=== PATIENT | male | born 1965 | race Caucasian/White ===

== ENCOUNTER 2020-02-28 13:40 | Emergency (ER) | payer OTHER, MEDICAID ==
[~2020-02-28] VITALS: Ht 177.8 cm; Wt 135.2 kg
[~2020-02-28 13:40] MED LIST: AMLO5TAB15 PO; CLON0.5T10; HYDR12.56; HYDROCODON-ACETAMINOPHN; OMEP20CA74 PO; TIZA4TAB3; [UNRECOGNIZED DRUG - CODE]
[2020-02-28 15:18] LABS: Basophils # (auto) 0.1 10 ^3/uL (0-0.2); Eosinophils # (auto) 0.2 10 ^3/uL (0-0.8); Eosinophils % (auto) 2.6 % (0.0-7.0); Hematocrit 39.2 % (41.0-53.0); Hemoglobin 12.9 g/dL (13.5-17.5); Lymphocytes # (auto) 2.7 10 ^3/uL (0.4-5.4); Lymphocytes % (auto) 29.3 % (10.0-50.0); Mean Corpuscular Hemoglobin 29.1 pg (28.0-32.0); Mean Corpuscular Hgb Conc. 33.1 g/dL (32.0-36.0); Mean Corpuscular Volume 87.9 fL (80.0-100.0); Monocytes # (auto) 0.8 10 ^3/uL (0-1.3); Monocytes % (auto) 9.1 % (0.0-12.0); Neutrophils # (auto) 5.3 10 ^3/uL (1.6-8.6); Nucleated Red Blood Cells % 0.1 %; Platelet Count (auto) 294 10^3/uL (140-450); Red Blood Cells 4.45 10^6/uL (4.5-5.90); Red Cell Distribution Width 13.3 % (11.8-14.3); White Blood Cell 9.2 10^3/uL (4.4-10.8)
[2020-02-28 15:33] LABS: Albumin 3.4 g/dL (3.4-5.0); BUN/Creatinine Ratio 14.2; Calcium 8.8 mg/dL (8.5-10.1); Potassium 3.8 mmol/L (3.5-5.1)
[2020-02-28 15:36] LABS: Bilirubin, Total 0.4 mg/dL (0.2-1.0); Total Protein 7.9 g/dL (6.4-8.2)
[2020-02-28 19:20] VITALS: BP 132/88
== END 2020-02-28 19:29 | disposition home or self-care (01) ==
LOC: ER 13:40
DX: M77.31 Calcaneal spur, right foot (principal); M20.41 Other hammer toe(s) (acquired), right foot; M13.871 Other specified arthritis, right ankle and foot; R60.0 Localized edema; M79.605 Pain in left leg; M79.604 Pain in right leg; M19.90 Unspecified osteoarthritis, unspecified site; K21.9 Gastro-esophageal reflux disease without esophagitis; I10 Essential (primary) hypertension; Z88.0 Allergy status to penicillin
CPT/HCPCS: 36415; 71045; 73620; 80053; 83880; 84484; 85025; 93005; 93970

== ENCOUNTER 2020-12-07 06:16 | Emergency (ER) | payer OTHER, MEDICAID ==
[~2020-12-07] VITALS: Ht 177.8 cm; Wt 136.1 kg
[~2020-12-07 06:16] MED LIST changes: +AMLO-489 PO; -AMLO5TAB15 PO
[2020-12-07 07:24] VITALS: BP 150/94
[2020-12-07] MEDS ORDERED: methylPREDNISolone SOD SUCC 125 MG/2 ML VL IM ONE (07:45)
[2020-12-07] MEDS ORDERED: KETOROLAC TROMETH 60MG/2ML VIAL IM ONE (07:45)
== END 2020-12-07 08:21 | disposition home or self-care (01) ==
LOC: ER 06:16
DX: M25.512 Pain in left shoulder (principal); I10 Essential (primary) hypertension; K21.9 Gastro-esophageal reflux disease without esophagitis; Z79.899 Other long term (current) drug therapy
CPT/HCPCS: 73030; 96372; 99284; J1885; J2930

== ENCOUNTER 2020-12-19 01:50 | Emergency (ER) | payer OTHER, MEDICAID ==
[~2020-12-19] VITALS: Ht 177.8 cm; Wt 136.1 kg
[2020-12-19 01:54] VITALS: BP 159/83
== END 2020-12-19 04:09 | disposition left against medical advice (07) ==
LOC: ER 01:50
DX: M25.552 Pain in left hip (principal); Z53.21 Procedure and treatment not carried out due to patient leaving prior to being seen by health care provider; W18.39XA Other fall on same level, initial encounter; Y93.89 Activity, other specified; Y92.89 Other specified places as the place of occurrence of the external cause; Y99.8 Other external cause status
CPT/HCPCS: 73502

== ENCOUNTER → 2021-01-17 02:54 | Emergency (ER) | payer OTHER, MEDICAID ==
[~2021-01-17 02:54] MED LIST changes: -TIZA4TAB3; +TIZA4TAB7
== END | disposition left against medical advice (07) ==
LOC: ER 02:54
DX: M25.512 Pain in left shoulder (principal); Z53.21 Procedure and treatment not carried out due to patient leaving prior to being seen by health care provider

== ENCOUNTER 2021-01-17 12:31 | Emergency (ER) | payer OTHER, MEDICAID ==
[~2021-01-17] VITALS: Ht 177.8 cm; Wt 136.1 kg
[~2021-01-17 12:31] MED LIST changes: +TIZA4TAB3; -TIZA4TAB7
[2021-01-17 12:55] VITALS: BP 118/85
[2021-01-17] MEDS ORDERED: KETOROLAC TROMETH 60MG/2ML VIAL IM ONE (14:00)
[2021-01-17] MEDS ORDERED: methylPREDNISolone SOD SUCC 125 MG/2 ML VL IM ONE (14:00)
== END 2021-01-17 15:22 | disposition home or self-care (01) ==
LOC: ER 12:31
DX: M25.512 Pain in left shoulder (principal); K21.9 Gastro-esophageal reflux disease without esophagitis; I10 Essential (primary) hypertension; Z79.899 Other long term (current) drug therapy; W19.XXXA Unspecified fall, initial encounter; Y93.89 Activity, other specified; Y92.89 Other specified places as the place of occurrence of the external cause; Y99.8 Other external cause status
CPT/HCPCS: 73030; 96372; 99284; J1885; J2930

== ENCOUNTER 2021-04-19 08:46 | Emergency (ER) | payer OTHER, MEDICAID ==
[~2021-04-19] VITALS: Ht 177.8 cm; Wt 126.1 kg
[~2021-04-19 08:46] MED LIST changes: -TIZA4TAB3; +TIZA4TAB7
[2021-04-19 09:13] VITALS: BP 143/86
== END 2021-04-19 10:30 | disposition home or self-care (01) ==
LOC: ER 08:46
DX: S46.812A Strain of other muscles, fascia and tendons at shoulder and upper arm level, left arm, initial encounter (principal); M13.812 Other specified arthritis, left shoulder; I10 Essential (primary) hypertension; K21.9 Gastro-esophageal reflux disease without esophagitis; Z96.642 Presence of left artificial hip joint; Z79.899 Other long term (current) drug therapy; X58.XXXA Exposure to other specified factors, initial encounter; Y93.89 Activity, other specified; Y92.89 Other specified places as the place of occurrence of the external cause; Y99.8 Other external cause status
CPT/HCPCS: 73030

== ENCOUNTER 2021-05-16 05:53 | Emergency (ER) | payer OTHER, MEDICAID ==
[~2021-05-16] VITALS: Ht 177.8 cm; Wt 113.4 kg
[2021-05-16 05:53] VITALS: BP 144/88
== END 2021-05-16 09:35 | disposition left against medical advice (07) ==
LOC: ER 05:53
DX: M25.512 Pain in left shoulder (principal); Z53.21 Procedure and treatment not carried out due to patient leaving prior to being seen by health care provider; W19.XXXA Unspecified fall, initial encounter; Y93.89 Activity, other specified; Y92.89 Other specified places as the place of occurrence of the external cause; Y99.8 Other external cause status
CPT/HCPCS: 73000

== ENCOUNTER 2021-06-15 09:09 | Emergency (ER) | payer OTHER, MEDICAID ==
[~2021-06-15] VITALS: Ht 177.8 cm; Wt 131.5 kg
[2021-06-15 09:13] VITALS: BP 135/92
[2021-06-15 09:59] LABS: Urine Bacteria NONE SEEN /hpf (None Seen); Urine Blood Negative /uL (Negative); Urine Hyaline Cast FEW /lpf (0 - 2); Urine Mucus FEW (None Seen); Urine WBC 6 /hpf (0 - 3)
[2021-06-15 10:18] LABS: Albumin 3.5 g/dL (3.4-5.0); Calcium 8.8 mg/dL (8.5-10.1); Potassium 3.5 mmol/L (3.5-5.1)
[2021-06-15 10:21] LABS: BUN/Creatinine Ratio 12.2; Basophils # (auto) 0 10 ^3/uL (0-0.2); Basophils % (auto) 0.6 % (0.0-2.0); Bilirubin, Total 0.9 mg/dL (0.2-1.0); Eosinophils # (auto) 0.1 10 ^3/uL (0-0.8); Eosinophils % (auto) 1.3 % (0.0-7.0); Hematocrit 39.7 % (41.0-53.0); Hemoglobin 13.5 g/dL (13.5-17.5); Lymphocytes # (auto) 2.7 10 ^3/uL (0.4-5.4); Lymphocytes % (auto) 33.9 % (10.0-50.0); Mean Corpuscular Hemoglobin 29.5 pg (28.0-32.0); Mean Corpuscular Volume 86.7 fL (80.0-100.0); Monocytes # (auto) 0.7 10 ^3/uL (0-1.3); Monocytes % (auto) 8.8 % (0.0-12.0); Neutrophils # (auto) 4.5 10 ^3/uL (1.6-8.6); Neutrophils % (auto) 55.4 % (37.0-80.0); Nucleated Red Blood Cells % 0.2 %; Red Blood Cells 4.58 10^6/uL (4.5-5.90); Red Cell Distribution Width 13.7 % (11.8-14.3); Total Protein 7.7 g/dL (6.4-8.2); White Blood Cell 8.1 10^3/uL (4.4-10.8)
== END 2021-06-15 11:51 | disposition left against medical advice (07) ==
LOC: ER 09:09
DX: R11.2 Nausea with vomiting, unspecified (principal); R19.7 Diarrhea, unspecified; G89.29 Other chronic pain; M54.9 Dorsalgia, unspecified; M25.519 Pain in unspecified shoulder
CPT/HCPCS: 36415; 80053; 81001; 85025

== ENCOUNTER 2024-10-17 11:12 | Emergency (ER) | payer OTHER, MEDICAID ==
[~2024-10-17] VITALS: Ht 177.8 cm; Wt 158.9 kg
[~2024-10-17 11:12] MED LIST changes: -AMLO-489 PO; +AMLO1TAB22 PO; -CLON0.5T10; +CLON0.5T4; -HYDR12.56; +HYDR12.59; +TIZA-142; -TIZA4TAB7
--- NOTE | 2024-10-17 12:01 | DVH ---
CHEST RADIOGRAPH Indication: COUGH Technique: Single frontal view of the chest was obtained COMPARISON: None FINDINGS: Lines and Tubes: None Lungs: Clear Pleura: No effusion. No pneumothorax. Cardiomediastinal contours: Unremarkable Bones: Unremarkable IMPRESSION: No acute disease.
[2024-10-17 12:45] VITALS: BP 124/92; PULSE 109; RESP 18; TEMP 98.1; O2SAT 96
[2024-10-17] MEDS ORDERED: CEPH500C PO (12:58)
[2024-10-17] MEDS ORDERED: PRED20TA2 PO (12:58)
[2024-10-17] MEDS ORDERED: BENZ200C64 PO (12:58)
--- NOTE | 2024-10-17 13:04 | ED.PDOC ---
SOB-HPI HPI Comments A 59 YEAR OLD MALE PRESENTS TO THE ED WITH CHIEF COMPLAINT OF COUGH. PATIENT REPORTS THAT HE HAS BEEN EXPERIENCING A PERSISTENT COUGH FOR THE PAST 2 WEEKS WITH NO OTHER SYMPTOMS. PATIENT DENIES ANY SOB, CHEST PAIN, SORE THROAT, FEVER, EAR PAIN, WHEEZING, OR HEADACHE.NO OTHER SYMPTOMS REPORTED AT THIS TIME OF CARE. Chief Complaint: Cough Time Seen by MD: 13:01 Primary Care Provider: NEELAM Guajardo notes: Nurses Notes, Medications, Allergies Information Source: Patient Mode of Arrival: Ambulatory Severity: Moderate Timing: Weeks Duration: Since onset Context: At Rest PE Risk Factors: None History of: None Prehospital treatment: None Modifying Factors: Nothing Associated Signs and Symptoms: Cough If cough with SOB: Productive Past Medical History PAST MEDICAL HISTORY: Arthritis, GERD, HTN Surgical History: Denies all surgeries Family History Family History: Reviewed,noncontributory to illness, Unknown Social History Smoker: Non-Smoker Alcohol: Occasionally Drugs: Denies Drug Use Lives In: Home Constitutional: denies: chills, diaphoresis, fatigue, fever, malaise, sweats, weakness, others EENTM: reports: nose congestion; denies: blurred vision, double vision, ear bleeding, ear discharge, ear drainage, ear pain, ear ringing, eye pain, eye redness, hearing loss, mouth pain, mouth swelling, nasal discharge, nose bleeding, nose pain, photophobia, tearing, throat pain, throat swelling, voice changes, others Respiratory: reports: cough; denies: hemoptysis, orthopnea, SOB at rest, shortness of breath, SOB with excertion, stridor, wheezing, others Cardiovascular: denies: chest pain, dizzy spells, diaphoresis, Dyspnea on exertion, edema, irregular heart beat, left arm pain, lightheadedness, palpitations, PND, syncope, others Gastrointestinal: denies: abdomen distended, abdominal pain, blood streaked bowels, constipated, diarrhea, dysphagia, difficulty swallowing, hematemesis, melena, nausea, poor appetite, poor fluid intake, rectal bleeding, rectal pain, vomiting, others Genitourinary: denies: burning, dysuria, flank pain, frequency, hematuria, incontinence, penile discharge, penile sore, pain, testicle pain, testicle swelling, urgency, others Neurological: denies: dizziness, fainting, headache, left sided numbness, left sided weakness, numbness, paresthesia, pre-existing deficit, right sided numbness, right sided weakness, seizure, speech problems, tingling, tremors, weakness, others Musculoskeletal: denies: back pain, gout, joint pain, joint swelling, muscle pain, muscle stiffness, neck pain, others Integumetry: denies: bruises, change in color, change in hair/nails, dryness, laceration, lesions, lumps, rash, wounds, others Allergic/Immunocompromised: denies: Difficulty Healing, Frequent Infections, Hives, Itching, others Hematologic/Lymphatic: denies: anemia, blood clots, easy bleeding, easy bruising, swollen glands, others Endocrine: denies: excessive hunger, excessive sweating, excessive thirst, excessive urination, flushing, intolerance to cold, intolerance to heat, unexplained weight gain, unexplained weight loss, others Psychiatric: denies: anxiety, bipolar disorder, depression, hopeless, panic disorder, schizophrenia, sleepless, suicidal, others All Other Systems: Reviewed and Negative Physical Exam General Appearance: No Apparent Distress, Obese HEENT: Normal ENT Inspection, PERRL/EOMI Neck: Full Range of Motion, Non-Tender, Normal, Normal Inspection Respiratory: Chest Non-Tender, Expiration, No Accessory Muscle Use, No Respiratory Distress Cardiovascular: No Edema, No JVD, No Murmur, No Gallop, Normal Peripheral Pulses, Regular Rate/Rhythm Breast Exam: Deferred Gastrointestinal: No Organomegaly, Non Tender, No Pulsatile Mass, Normal Bowel Sounds, Soft Genitalia: Deferred Pelvic: Deferred Rectal: Deferred Extremities: No calf tenderness, Normal capillary refill, Normal inspection, Normal range of motion, Non-tender, No pedal edema Musculoskeletal : Apperance: Normal Neurologic: Alert, ob/gyn physician II-XII nml as Tested, No Motor Deficits, Normal Affect, Normal Mood, No Sensory Deficits Cerebellar Function: Normal Reflexes: Normal Skin: Dry, Normal Color, Warm Peripheral Pulses: 2+ carotid (R), 2+ carotid (L) Lymphatic: No Adenopathy Was a procedure done? Was a procedure done?: No Differential Dx Differential Diagnosis: Asthma, Bronchitis, Pneumonia, Sinusitis, Allergic Rhinitis, Pharyngitis, URI X-Ray, Labs, Meds, VS Vital Signs Date Time Temp Pulse Resp B/P (MAP) Pulse Ox O2 Delivery O2 Flow Rate FiO2 10/17/24 12:45 109 18 96 Room Air 10/17/24 12:45 98.1 109 18 124/92 (103) 96 98.1 10/17/24 11:37 18 96 Room Air 0 10/17/24 11:37 98.1 109 18 124/92 (103) 96 98.1 CHEST XR: FINDINGS: Lines and Tubes: None Lungs: Clear Pleura: No effusion. No pneumothorax. Cardiomediastinal contours: Unremarkable Bones: Unremarkable IMPRESSION: No acute disease. X-Ray, Labs, Meds, VS Comment EXTERNAL MEDICAL RECORDS REVIEWED: [NONE] INDEPENDENT HISTORIANS: [NONE] SOCIAL DETERMINANTS OF HEALTH: [NONE] LABS ORDERED: NONE REVIEWED AND INTERPRETED RESULTS: CHEST XR IMAGING ORDERED: CHEST XR TREATMENTS ORDERED: NONE PROCEDURES PERFORMED: NONE CRITICAL CARE TIME: NONE I HAVE DISCUSSED THE PATIENT WITH THE ATTENDING PHYSICIAN [ALFONSO] AND HE AGREES WITH THE PATIENT'S PLAN OF CARE AND DISPOSITION. BASED ON HISTORY OF PRESENT ILLNESS, AND PHYSICAL EXAM, PATIENT WILL BE DISCHARGED HOME. DISCUSSED PLAN FOR DISCHARGE HOME WITH RX TERESA HUFFMAN. MEDICATION WARNINGS GIVEN. SHARED DECISION MAKING: DISCUSSED WITH PATIENT THAT THEIR WORKUP WAS NORMAL. PATIENT INSTRUCTED TO FOLLOW UP WITH PRIMARY CARE PROVIDER IN 1-2 DAYS FOR RE- EVALUATION OF SYMPTOMS. PATIENT VERBALIZES UNDERSTANDING TO RETURN TO ED FOR NEW OR WORSENING SYMPTOMS OR IF FOLLOW UP WITH PCP CANNOT BE OBTAINED. PATIENT FEELS COMFORTABLE GOING HOME AT THIS TIME. ALL QUESTIONS ADDRESSED AT TIME OF DISCHARGE. Time of 1ST Reevaluation: 14:00 Reevaluation 1ST: Improved Patient Education/Counseling: Diagnosis, Treatment, Need For Follow Up Family Education/Counseling: Diagnosis, Treatment, No Family Present Medical Screening: No EMC Exist At This Time Departure 1 Departure Time of Disposition: 13:10 Impression: Primary Impression: Acute bronchitis Qualified Codes: J20.9 - Acute bronchitis, unspecified Disposition: HOME / SELF CARE / HOMELESS Condition: Stable Additional Instructions: FOLLOW-UP WITH PCP IN 1 TO 2 DAYS. TAKE MEDICATIONS PRESCRIBED. RETURN TO ED FOR ANY NEW OR WORSENING SYMPTOMS. e-Prescriptions Prednisone (Prednisone) 20 Mg Tab 60 MG PO DAILY, #15 TAB Prov: ELIZABETH CARROLL 10/17/24 Benzonatate (Benzonatate) 200 Mg Cap 1 CAP PO TID, #30 CAP Prov: ELIZABETH CARROLL 10/17/24 Cephalexin Monohydrate (Cephalexin) 500 Mg Cap 1 CAP PO QID, #32 CAP Prov: ELIZABETH CARROLL 10/17/24 Discharged With: Self Critical Care Note Critical Care Time?: No Stability Stability form required: No Heart Score Heart Score: Heart Score Response (Comments) Value History N/A 0 EKG N/A 0 Age N/A 0 Risk Factors N/A 0 Troponin N/A 0 Total 0 I personally scribed for ELIZABETH CARROLL ([email or web address]) on 10/17/24 at 13:04. Electronically submitted by Fred Quinones ([email or web address]). ELIZABETH CARROLL Oct 17, 2024 13:04
== END 2024-10-17 13:10 | disposition home or self-care (01) ==
LOC: ER 11:17
DX: J20.9 Acute bronchitis, unspecified (principal); M19.90 Unspecified osteoarthritis, unspecified site; I10 Essential (primary) hypertension; R05.9 Cough, unspecified
CPT/HCPCS: 71045